=== PATIENT | female | born 1985 | race Caucasian/White ===

== ENCOUNTER 2016-08-24 15:40 | Outpatient (CLI) | payer OTHER ==
[~2016-08-24] VITALS: Ht 152.4 cm; Wt 62.3 kg
[2016-08-24 16:03] VITALS: BP 110/68
[2016-08-24 22:01] VITALS: BP 112/66
[2016-08-25 03:06] VITALS: BP 101/66
[2016-08-25 07:11] VITALS: BP 135/67
== END 2016-08-25 10:40 | disposition home or self-care (01) ==
LOC: LDRP-OP 15:40 → 2WEST 15:43 → LDRP-OP 10-16 14:36
DX: O41.03X0 Oligohydramnios, third trimester, not applicable or unspecified (principal); Z3A.36 36 weeks gestation of pregnancy; O76 Abnormality in fetal heart rate and rhythm complicating labor and delivery; O99.323 Drug use complicating pregnancy, third trimester; F11.90 Opioid use, unspecified, uncomplicated
CPT/HCPCS: 59025; 76818; G0378; J7030

== ENCOUNTER 2016-09-01 20:53 | Inpatient (IN) | payer OTHER ==
[~2016-09-01] VITALS: Ht 152.4 cm; Wt 63.0 kg
[2016-09-01 20:57] VITALS: BP 124/76
[2016-09-01] MEDS ORDERED: METHADONE1 MG/1 ML PO (21:03)
[2016-09-01 22:34] LABS: EOSINOPHIL (%) 0.6 % (0-5); EOSINOPHIL COUNT 0.1 K/uL (0-0.3); HEMATOCRIT 29.2 % (36.0-46.0); IMMATURE GRANULOCYTE (%) 0.6 % (0.0-0.7); IMMATURE GRANULOCYTE COUNT 0.1 K/uL; INSTRUMENT ABS NEUTROPHIL CT 10.6 K/uL; LYMPHOCYTE COUNT 2.4 K/uL (1.0-2.8); MCH 27.5 PG (29.0-34.0); MCHC 32.9 G/DL (30.0-36.0); MCV 83.7 FL (83-99); MEAN PLAT.VOLUME 10.2 uM^3 (9.5-12.4); MONOCYTE (%) 5.6 % (3-12); MONOCYTE COUNT 0.8 K/uL (0-0.8); NEUTROPHIL (%) 75.6 % (45-76); NEUTROPHIL COUNT 10.6 K/uL (1.8-6.4); PLATELET COUNT 238 K/uL (156-360); RBC DIS.WIDTH-CV 13.8 % (11.8-14.6); RBC DIS.WIDTH-SD 41.9 % (39-53); RED BLOOD COUNT 3.49 M/uL (3.80-5.20)
[2016-09-01 22:43] LABS: CHLORIDE 105 mEq/L (99-109); POTASSIUM 3.6 mEq/L (3.7-5.4); SODIUM 134 mEq/L (136-147)
[2016-09-01 22:45] LABS: GLUCOSE 60 mg/dL (70-99)
[2016-09-01 22:46] LABS: ANION GAP 9 MEQ/L (2-14)
[2016-09-01 22:47] LABS: TOTAL BILIRUBIN 0.2 mg/dL (0.0-1.0)
[2016-09-01 22:49] LABS: ALKALINE PHOSPHATASE 146 IU/L (3-129); GFR ESTIMATE (CALCULATED) > 59 mL/min/
[2016-09-01 22:50] LABS: UREA NITROGEN (BUN) 8 mg/dL (9-23)
[2016-09-01 23:38] VITALS: BP 149/62
[2016-09-01 23:43] VITALS: BP 123/71
[2016-09-01 23:46] VITALS: BP 123/59
[2016-09-01 23:52] VITALS: BP 106/59
[2016-09-01 23:57] VITALS: BP 107/57
[2016-09-02] VITALS (18 sets, daily range): BP systolic 100–206; BP diastolic 51–168
[2016-09-02 00:28] LABS: ADD MEDTOX COMMENT Y; AMPHETAMINE NEGATIVE (500 ng/mL); BARBITURATES NEGATIVE (200 ng/mL); BENZODIAZEPINES NEGATIVE (150 ng/mL); COCAINE NEGATIVE (150 ng/mL); INTERNAL CONTROLS VALID? YES; METHADONE PRESUMPTIVE POSITIVE (200 ng/mL); METHAMPHETAMINE NEGATIVE (500 ng/mL); OPIATES (MORPHINE) NEGATIVE (100 ng/mL); OXYCODONE NEGATIVE (100 ng/mL); PHENCYCLIDINE NEGATIVE (25 ng/mL); PROPOXYPHENE NEGATIVE (300 ng/mL); THC CANNABINOIDS PRESUMPTIVE POSITIVE (50 ng/mL); TRICYCLIC ANTIDEPRESSANTS NEGATIVE (300 ng/mL)
[2016-09-02 00:38] LABS: METH RESISTANT S AUREUS PCR NEGATIVE (NEGATIVE)
[2016-09-02 00:42] LABS: PROBE CHECK PASS; SPECIMEN PROCESSING CONTROL PASS
[2016-09-02 08:52] LABS: ANTI-HIV (AIDS STAT TEST) NONREACTIVE; INTERNAL CONTROL VALID? YES
[2016-09-02 10:42] LABS: HBSG INDEX 0.24
[2016-09-02 10:43] LABS: ANTI-HEPATITIS A VIRUS (IGM) Nonreactive; HAV INDEX 0.26; HPCA INDEX 0.16
[2016-09-02 10:45] LABS: ANTI-HEPATITIS B CORE (IGM) Nonreactive; HIV INDEX 0.09; HIV-1/2 AB/AG COMBO Nonreactive
[2016-09-03 06:49] LABS: BASOPHIL COUNT 0.1 K/uL (0-0.1); EOSINOPHIL (%) 1.4 % (0-5); EOSINOPHIL COUNT 0.3 K/uL (0-0.3); HEMATOCRIT 30.7 % (36.0-46.0); IMMATURE GRANULOCYTE (%) 0.5 % (0.0-0.7); IMMATURE GRANULOCYTE COUNT 0.1 K/uL; INSTRUMENT ABS NEUTROPHIL CT 10.8 K/uL; LYMPHOCYTE COUNT 5.7 K/uL (1.0-2.8); MCH 27.8 PG (29.0-34.0); MCHC 32.2 G/DL (30.0-36.0); MCV 86.2 FL (83-99); MEAN PLAT.VOLUME 10.9 uM^3 (9.5-12.4); MONOCYTE (%) 8.5 % (3-12); MONOCYTE COUNT 1.6 K/uL (0-0.8); NEUTROPHIL (%) 58.4 % (45-76); NEUTROPHIL COUNT 10.8 K/uL (1.8-6.4); PLATELET COUNT 241 K/uL (156-360); RBC DIS.WIDTH-SD 44.4 % (39-53); RED BLOOD COUNT 3.56 M/uL (3.80-5.20); WHITE BLOOD COUNT 18.6 K/uL (4.1-10.2)
[2016-09-03 07:37] VITALS: BP 121/68
[2016-09-03] MEDS ORDERED: Tylenol Extra Streng PO (10:28)
[2016-09-03] MEDS ORDERED: IBUPROFEN800 MG PO (10:29)
== END 2016-09-03 11:48 | disposition home or self-care (01) | DRG 775 ==
LOC: LDRP-OP 20:53 → 2WEST 20:54 → LDRP-OP 10-16 11:31
PROVIDERS: Advanced Practice Midwife
DX: O70.0 First degree perineal laceration during delivery (principal); O36.5930 Maternal care for other known or suspected poor fetal growth, third trimester, not applicable or unspecified; O99.323 Drug use complicating pregnancy, third trimester; F11.20 Opioid dependence, uncomplicated; F12.90 Cannabis use, unspecified, uncomplicated; O99.02 Anemia complicating childbirth; D50.9 Iron deficiency anemia, unspecified; Z3A.38 38 weeks gestation of pregnancy; Z37.0 Single live birth; O99.333 Smoking (tobacco) complicating pregnancy, third trimester; F17.200 Nicotine dependence, unspecified, uncomplicated
CPT/HCPCS: 80053; 80074; 84999; 85025; 86703; 87641; 88307; C1755; G0378; J3010; J7120